=== PATIENT | male | born 1995 | race Caucasian/White ===

== ENCOUNTER 2020-09-25 00:52 | Emergency (ER) | payer OTHER ==
[~2020-09-25] VITALS: Ht 180.3 cm; Wt 79.0 kg
[2020-09-25] MEDS ORDERED: AMOX250C PO (01:17)
[2020-09-25 03:00] VITALS: BP 136/65
== END 2020-09-25 03:53 | disposition home or self-care (01) ==
LOC: M ED 00:52
DX: S63.610A Unspecified sprain of right index finger, initial encounter (principal); Y92.9 Unspecified place or not applicable; Y93.9 Activity, unspecified; Y99.1 Military activity